=== PATIENT | female | born 1980 | race Caucasian/White ===

== ENCOUNTER 2016-04-19 00:34 | Observation (INO) | payer BC ==
[2016-04-19] MEDS ORDERED: MORPHINE SULFATE 5 MG/ML PFS IVP ONE (00:51)
[2016-04-19] MEDS ORDERED: ONDANSETRON HCL IV 4 MG/2 ML VIAL IVP ONE ×2 (00:51→15:42)
[2016-04-19 01:00] LABS: BASO % 0.3 % (0-6); GRAN % 62.9 % (47-80); HEMATOCRIT 42.1 % (35.0-47.0); HEMOGLOBIN 14.8 gm/dl (11.6-16.0); LYMPH % 30.6 % (16-45); MEAN CELL VOLUME 80.8 fl (81-97); MEAN CORPUSCULAR HEMOGLOBIN 28.4 pg (27-33); MEAN CORPUSCULAR HGB CONC 35.2 g/dl (32-36); MEAN PLATELET VOLUME 9.8 fl (7.4-10.4); MONO % 4.2 % (0-9); PLATELET COUNT 347 K/uL (130-400); RED BLOOD COUNT 5.21 M/uL (3.80-5.40); RED CELL DISTRIBUTION WIDTH 11.7 % (11.5-14.5); WHITE BLOOD COUNT W/O DIFF 11.6 K/uL (4.2-12.2)
[2016-04-19] MEDS ORDERED: 0.9 % SODIUM CHLORIDE 1000ML 1,000 ML IV SCH (01:00)
--- NOTE | 2016-04-19 01:00 | Emergency Department Record ---
History of Present Illness - General Chief Complaint: Abdominal Pain Stated Complaint: ABD PAIN Time Seen by Provider: 04/19/16 00:35 Source: Patient Mode of Arrival: Ambulatory Limitations: No limitations - History of Present Illness Initial Comments: 35 yo female presents to ED with a CC of progressively worsening abdominal pain that began 4-5 hours ago after eating fast food. Patient denies vomiting or fever, reports nausea symptoms. Patient reports that her pain is diffuse, but greatest in the RLQ. Patient denies previous surgeries. MD Complaint: Abdominal pain Onset/Timin -: Hour(s) Location: Diffuse, RLQ Severity: Moderate Quality: Sharp Consistency: Constant Improves With: Nothing Worsens With: Movement Associated Symptoms: Nausea - Related Data Home Medications Medication Instructions Recorded Confirmed Last Taken Gabapentin [Gabapentin] 300 mg PO DAILY 04/19/16 04/19/16 Unknown Hydroxyzine HCl [Atarax] 25 mg PO QID PRN 04/19/16 04/19/16 Unknown Metoclopramide HCl [Reglan] 5 mg PO BID PRN 04/19/16 04/19/16 Unknown Venlafaxine HCl [Venlafaxine HCl 300 mg PO DAILY 04/19/16 04/19/16 Unknown ER] Allergies Allergy/AdvReac Type Severity Reaction Status Date / Time Multiple food allergies Allergy HIVES Uncoded 07/04/15 22:34 Review of Systems Constitutional: Denies: Chills, Fever, Malaise, Night sweats Eyes: Denies: Eye discharge, Eye pain ENT: Denies: Congestion, Ear pain Respiratory: Denies: Cough, Dyspnea Cardiovascular: Denies: Chest pain, Dyspnea on exertion Endocrine: Denies: Fatigue, Heat or cold intolerance Gastrointestinal: Reports: Abdominal pain, Nausea. Denies: Constipation, Vomiting Genitourinary: Denies: Dysuria, Frequency Musculoskeletal: Denies: Arthralgia, Back pain, Gout, Joint swelling Skin: Denies: Bruising, Change in color Neurological: Denies: Abnormal gait, Confusion, Headache, Seizure Psychiatric: Denies: Anxiety Hematological/Lymphatic: Denies: Anemia, Blood Clots Past Medical History - SOCIAL HISTORY Smoking Status: Never smoker - RESPIRATORY Hx Respiratory Disorders: No - CARDIOVASCULAR Hx Cardio Disorders: No - NEURO Hx Neuro Disorders: Yes Hx Headaches: Yes (migraines) - GI Hx GI Disorders: No - Hx Genitourinary Disorders: No - ENDOCRINE Hx Endocrine Disorders: No - MUSCULOSKELETAL Hx Musculoskeletal Disorders: Yes Comment:: Autoimmune r/t connective tissue - PSYCH Hx Psych Problems: No - HEMATOLOGY/ONCOLOGY Hx Hematology/Oncology Disorders: No Physical Exam - General General Appearance: Alert, Oriented x3, Cooperative, Moderate distress (appears uncomfortable on examination) Limitations: No limitations - Head Head exam: Atraumatic, Normocephalic, Normal inspection Head exam detail: negative: Abrasion, Contusion, Reid's sign, General tenderness, Hematoma, Laceration - Eye Eye exam: Normal appearance. negative: Conjunctival injection, Periorbital swelling, Periorbital tenderness, Scleral icterus - ENT Ear exam: negative: Auricular hematoma, Auricular trauma Nasal Exam: negative: Active bleeding, Discharge, Dried blood, Foreign body Mouth exam: negative: Drooling, Laceration, Muffled voice, Tongue elevation - Neck Neck exam: Normal inspection. negative: Meningismus, Tenderness - Respiratory Respiratory exam: Normal lung sounds bilaterally. negative: Rales, Respiratory distress, Rhonchi, Stridor - Cardiovascular Cardiovascular Exam: Normal rhythm, Normal heart sounds, Tachycardia - GI/Abdominal GI/Abdominal exam: Soft, Tenderness, Other (Diffuse TTP, moderate to severe in nature, greastest RLQ, no rebound, guarding is present). negative: Rebound, Rigid - Rectal Rectal exam: Deferred - exam: Deferred - Extremities Extremities exam: Normal inspection. negative: Calf tenderness, Pedal edema, Tenderness - Back Back exam: Denies: CVA tenderness (R), CVA tenderness (L) - Neurological Neurological exam: Alert, Normal gait, Oriented X3 - Psychiatric Psychiatric exam: Normal affect, Normal mood - Skin Skin exam: Normal color. negative: Abrasion Type of lesion: negative: abrasion Course Vital Signs 04/19/16 00:45 Temperature 97.9 F Pulse Rate [ 109 H Pulse Ox Probe] Respiratory 18 Rate Blood Pressure 158/105 [Left Arm] Pulse Ox 96 - Reevaluation(s) Reevaluation #1: 04/19/16 01:23 Labs reviewed, Glucose 243, AST 72, ALT 116. HCG negative, labs are otherwise grossly unremarkable for an acute process. Reevaluation #2: 04/19/16 01:58 CT Abdomen and Pelvis: Small amount of stranding in the RLQ, appendix not well visualized. Patient updated on all results, reports that after Morphine 5 mg and Dilaudid 0.5 mg, pain is improved but still present. Physical examination is consistent with acute appendicitis, CT Abdomen and Pelvis demonstrates stranding in the region of the RLQ, appendix otherwise not well visualized. Case was discussed with Dr. Alejandro, will admit for probable appendicitis and possible operative removal later today. Medical Decision Making - Lab Data Result diagrams: 04/19/16 00:46 04/19/16 00:46 Disposition Disposition: Admit Clinical Impression: Abdominal pain Qualifiers: Abdominal location: right lower quadrant Qualified Code(s): R10.31 - Right lower quadrant pain Disposition: Still a Patient at [facility] Decision to Admit: Admit from ER Decision to Admit Date: 04/19/16 Decision to Admit Time: 02:02 Condition: (1) Good Time of Disposition: 02:02
[2016-04-19 01:03] LABS: URINE APPEARANCE CLEAR; URINE BILIRUBIN NEGATIVE (NEGATIVE); URINE BLOOD TRACE-I (NEGATIVE); URINE COLOR YELLOW; URINE KETONE 15 mg/dL (NEGATIVE); URINE LEUKOCYTE ESTERASE NEGATIVE (NEGATIVE); URINE NITRITE NEGATIVE (NEGATIVE); URINE UROBILINOGEN 0.2 E.U./dL (0.20 - 1.00)
[2016-04-19 01:06] LABS: HCG,QUALITATIVE URINE NEGATIVE (NEGATIVE); URINE BACTERIA NONE SEEN; URINE EPITHELIAL CELLS 0 - 2 (FEW); URINE RBC 0 - 2 (NONE SEEN); URINE WBC 0 - 2 (0-2/hpf)
[2016-04-19 01:09] LABS: ALB/GLOB RATIO 1.6 (1.1-1.8); ALBUMIN 4.5 gm/dL (3.5-5.0); ALKALINE PHOSPHATASE 107 U/L (38-126); ALT/SGPT 116 U/L (9-52); ANION GAP 15.4 (7-16); AST/SGOT 72 U/L (14-36); BILIRUBIN,TOTAL 0.53 mg/dL (0.2-1.3); BLOOD UREA NITROGEN 10 mg/dL (7-17); CARBON DIOXIDE 24.6 mmol/L (22-30); CREATININE 0.5 mg/dL (0.52-1.04); EST GLOMERULAR FILTRATION RATE > 60 ml/min; GLUCOSE,RANDOM 243 mg/dL (70-110); LIPASE 62 U/L (23-300); TOTAL PROTEIN 7.3 gm/dL (6.3-8.2)
[2016-04-19] MEDS ORDERED: HYDROMORPHONE HCL 1 MG/ML CPJ IVP ONE ×2 (01:36→16:39)
[2016-04-19] MEDS ORDERED: ONDANSETRON HCL IV 4 MG/2 ML VIAL IVP PRN (02:02)
[2016-04-19] MEDS ORDERED: 0.9 % SODIUM CHLORIDE 1000ML 1,000 ML IV PRN (02:02)
[2016-04-19] MEDS ORDERED: ERTAPENEM SODIUM 1 G in 0.9 % SODIUM CHLORIDE 100ML 100 ML IVPB ONE (02:03)
[2016-04-19] MEDS: HYDROMORPHONE HCL 1 MG/ML CPJ IVP PRN ×2 (03:25→07:53)
[2016-04-19] MEDS: DIPHENHYDRAMINE HCL IV 50 MG/ML VIAL IVP ONE ×2 (04:29→08:13)
[2016-04-19] MEDS ORDERED: HYDROMORPHONE HCL 2 MG/ML VIAL IV ONE (05:49)
[2016-04-19] MEDS ORDERED: BUPIVACAINE 0.25% W/EPI MPF 30ML VIAL IVP ONE (05:49)
[2016-04-19] MEDS ORDERED: RINGERS SOLUTION,LACTATED 1,000 ML IV PRN (07:56)
[2016-04-19] MEDS ORDERED: DIPHENHYDRAMINE HCL IV 50 MG/ML VIAL IVP ONE (08:08)
[2016-04-19] MEDS ORDERED: MECLIZINE 25 MG TABLET PO ONE (10:24)
[2016-04-19] MEDS ORDERED: FAMOTIDINE 20MG TABLET PO ONE (10:28)
[2016-04-19] MEDS ORDERED: METOCLOPRAMIDE 10 MG TABLET PO ONE (10:30)
[2016-04-19] MEDS ORDERED: ACETAMINOPHEN 1,000 MG in SODIUM CHLORIDE 1 BAG IVPB ONE (10:34)
[2016-04-19] MEDS ORDERED: HYDROCODONE/APAP 5/325MG TABLET PO PRN ×2 (13:32→13:33)
[2016-04-19] MEDS ORDERED: DIPHENHYDRAMINE HCL 25 MG CAPSULE PO PRN (13:45)
[2016-04-19] MEDS ORDERED: DIPHENHYDRAMINE HCL IV 50 MG/ML VIAL IVP PRN (13:47)
[2016-04-19] MEDS ORDERED: KETOROLAC 30 MG/ML VIAL IVP ONE (15:42)
[2016-04-19] MEDS ORDERED: PROPOFOL 10 MG/ML VIAL IV ONE (15:42)
[2016-04-19] MEDS ORDERED: ROCURONIUM BROMIDE 50MG/5ML VIAL IV ONE (15:42)
[2016-04-19] MEDS ORDERED: LIDOCAINE 2% MDV (20MG/ML) 20ML VIAL IV ONE (15:42)
[2016-04-19] MEDS ORDERED: FENTANYL PF 100MCG/2ML VIAL IV ONE (15:42)
[2016-04-19] MEDS ORDERED: SUCCINYLCHOLINE 20 MG/ML 10ML IVP ONE (15:42)
[2016-04-19] MEDS ORDERED: GLYCOPYRROLATE 0.2 MG/ML ML IV ONE (15:42)
[2016-04-19] MEDS ORDERED: NEOSTIGMINE 1 MG/1 ML,10ML VIAL IV ONE (15:42)
[2016-04-19] MEDS ORDERED: MIDAZOLAM HCL 2MG/2ML VIAL IV ONE (15:42)
--- NOTE | 2016-04-22 13:21 | Operative Note ---
DATE OF SURGERY: 04/19/2016 REFERRING: Aaron Caballero M.D. PREOPERATIVE DIAGNOSIS: Acute appendicitis. POSTOPERATIVE DIAGNOSIS: Acute appendicitis. OPERATION: Laparoscopic appendectomy. Surgeon: Waqar Alejandro D.O. Indication: The patient is a 35-year-old female who has had about an 18-hour history of abdominal pain. This did settle in her right lower quadrant and it was accompanied by some extreme nausea. Imaging studies as well as laboratory values were done. This did show a mildly elevated white blood cell count and a CT scan that did show findings consistent with acute appendicitis. We did discuss appendectomy, risks, benefits and alternatives. Risks include but not limited to bleeding, infection, abscess formation, possibility of an open operation and she understood this fully. Consent was signed and questions answered. PROCEDURE: She was taken to the operating room and placed in the supine position. General anesthesia was administered per Department of Anesthesia. The patient's abdomen was shaved of hair and prepped and draped in the usual sterile fashion. Infraumbilical region was anesthetized with a total of 2 mL of 0.25% Sensorcaine with epinephrine. A 2 cm infraumbilical incision made. This was carried down through copious amounts of subcutaneous tissue to the anterior rectus fascia. This was incised. Sweetie clamps were placed on the fascial edges and brought up into the wound. Stay sutures of 0 Vicryl were placed. The posterior rectus sheath was identified and incised and peritoneal cavity was entered bluntly. At this time a 10 mm blunt Shae port was placed and adequate pneumoperitoneum established. Under direct visualization an additional 5 mm right subcostal and a 5 mm suprapubic port were placed. The patient was rotated into Trendelenburg position, rotation to the left. The appendix was in the right mid abdomen. This was lifted anteriorly. The mesoappendix was taken down serially until the base of the appendix was noted. At this time an Endo VALERIE stapling device was used to transect the appendix off the base of cecum. This was placed in an EndoCatch bag and brought out infraumbilically. The right lower quadrant rechecked and noted to be hemostatic. No bleeding, no bile leak and no bile injury noted. Patient was leveled out and pneumoperitoneum was released. All ports removed. The fascia was closed with 0 Vicryl in a [id number] fashion. Skin in all ports closed with 4-0 Vicryl. She was taken to the Recovery Room in satisfactory condition. FINDINGS AT TIME OF SURGERY: Acute appendicitis. Waqar Alejandro DO CC: Aaron Caballero M.D., [address] [place] [id number] [facility]
--- NOTE | 2016-04-23 09:13 | CT SCAN REPORT ---
EXAM: CT SCAN OF THE ABDOMEN AND PELVIS HISTORY: PATIENT HAS LOWER ABDOMINAL PAIN AND NAUSEA. TECHNIQUE: Serial axial CT scan of the abdomen and pelvis was performed at 3.75 mm intervals from the dome of the diaphragm down to the pubic symphysis following the intravenous administration of 50 ml of Omnipaque 300. Comparison: CT scan of the abdomen and pelvis dated 03/28/12 is provided. FINDINGS: The lung windows of the lung bases demonstrate no CT evidence of a focal infiltrate or pleural effusion. The visualized heart size and contour is within normal limits. There is diffuse fatty infiltration identified throughout the liver. The size and contour of the liver is within normal limits. No suspicious focal hepatic lesions are identified. The visualized spleen, pancreas, adrenal glands, and gallbladder are unremarkable. There is no CT evidence of hydronephrosis or hydroureter. No renal or ureteral calculi are noted. The contour, caliber and flow within the abdominal aorta is within normal limits. There is no CT evidence of retroperitoneal, pelvic, or inguinal lymphadenopathy. The bowel gas pattern is nonobstructive. The appendix measures approximately 7.6 mm in diameter (normal being less than or equal to 6 mm). Mild periappendiceal fat stranding is identified. These findings suggest subtle, acute appendicitis. Clinical correlation is recommended. There is no CT evidence of free intraperitoneal fluid or free intraperitoneal air. There is no CT evidence of periappendiceal abscess. The anterior abdominal wall is unremarkable. The urinary bladder is decompressed. The uterus is unremarkable. Occasional follicles are identified within both ovaries. Bone windows demonstrate no CT evidence of a fracture or dislocation of the visualized osseous structures of the abdomen and pelvis. IMPRESSION: FINDINGS SUSPICIOUS FOR SUBTLE, ACUTE APPENDICITIS. CLINICAL CORRELATION IS RECOMMENDED. JOB NUMBER: [id number] [facility]
== END 2016-04-19 17:50 | disposition home or self-care (01) ==
LOC: ER 00:34 → MEDSURG 02:09
PROVIDERS: ADMIT Surgery; ATTEND Surgery
DX: K35.89 Other acute appendicitis (principal)
CPT/HCPCS: 99285 ×2; 96374; 96375; 96361; 83690; 85025; 80053; 36416; 81001; 82948; 81025; 74177; 44970; 00840; G0378; Q9967; J1335; J1885; J2405; J3010; J1170 ×2; J2270; J0330; J1200; J2710; J7030; J7120

== ENCOUNTER 2017-10-12 14:00 | Emergency (ER) | payer BC ==
--- NOTE | 2017-10-12 14:32 | Emergency Department Record ---
History of Present Illness - General Chief Complaint: Abdominal Pain Stated Complaint: ABDOMINAL PAIN,VOMITING,DIARRHEA Time Seen by Provider: 10/12/17 14:23 Mode of Arrival: Ambulatory - History of Present Illness Initial Comments: abdominal pain and nausea and she wake up at 5 am today with nausea and she took zofran and activated charcoal and she had 4 loose stools and she went to [facility] and the wait was to long so came here. MD Complaint: Abdominal pain Onset/Timin -: Days(s) Location: Diffuse Radiation: None Severity scale (1-10): 4 Quality: Cramping Consistency: Constant Improves With: Nothing Worsens With: Eating Associated Symptoms: Nausea - Related Data LMP (females 10-50): 1 month ago Home Medications Medication Instructions Recorded Confirmed Last Taken Alprazolam 0.25 mg PO QHS 10/12/17 10/12/17 Unknown Ondansetron [Zofran Odt] 4 mg PO Q8H PRN 10/12/17 10/12/17 Unknown Previous Rx's Medication Instructions Recorded Dicyclomine HCl [Bentyl] 10 mg PO Q8H #14 cap 10/12/17 Allergies Allergy/AdvReac Type Severity Reaction Status Date / Time metoclopramide [From Reglan] Allergy HIVES Verified 10/12/17 14:18 Multiple food allergies Allergy HIVES Uncoded 07/04/15 22:34 Travel Screening - Travel/Exposure Within Last 30 Days Have you traveled within the last 30 days?: No Review of Systems Reviewed: No additional complaints except as noted below Constitutional: Reports: As per HPI. Denies: Chills, Fever, Malaise, Night sweats, Weakness, Weight change Eyes: Reports: As per HPI. Denies: Eye discharge, Eye pain, Photophobia, Vision change ENT: Reports: As per HPI. Denies: Congestion, Dental pain, Ear pain, Epistaxis , Hearing loss, Throat pain Respiratory: Reports: As per HPI. Denies: Cough, Dyspnea, Hemoptysis, Stridor, Wheezes Cardiovascular: Reports: As per HPI. Denies: Arrhythmia, Chest pain, Dyspnea on exertion, Edema, Murmurs, Orthopnea, Palpitations, Paroxysmal nocturnal dyspnea, Rheumatic Fever, Syncope Endocrine: Reports: As per HPI. Denies: Fatigue, Heat or cold intolerance, Polydipsia, Polyuria Gastrointestinal: Reports: As per HPI. Denies: Abdominal pain, Constipation, Diarrhea, Hematemesis, Hematochezia, Melena, Nausea, Vomiting Genitourinary: Reports: As per HPI. Denies: Abnormal menses, Discharge, Dyspareunia, Dysuria, Frequency, Hematuria, Incontinence, Retention, Urgency Musculoskeletal: Reports: As per HPI. Denies: Arthralgia, Back pain, Gout, Joint swelling, Myalgia, Neck pain Skin: Reports: As per HPI. Denies: Bruising, Change in color, Change in hair/ nails, Lesions, Pruritus, Rash Neurological: Reports: As per HPI. Denies: Abnormal gait, Confusion, Headache, Numbness, Paresthesias, Seizure, Tingling, Tremors, Vertigo, Weakness Psychiatric: Reports: As per HPI. Denies: Anxiety, Auditory hallucinations, Depression, Homicidal thoughts, Suicidal thoughts, Visual hallucinations Hematological/Lymphatic: Reports: As per HPI. Denies: Anemia, Blood Clots, Easy bleeding, Easy bruising, Swollen glands Past Medical History - SOCIAL HISTORY Smoking Status: Never smoker Alcohol Use: None Drug Use: None - RESPIRATORY Hx Respiratory Disorders: Yes Hx Bronchitis: Yes (7 years ago developed into pneumonia) Hx Pneumonia: Yes (7 years ago) - CARDIOVASCULAR Hx Cardio Disorders: No Hx Edema: Yes (hands-seeing crew supervisor) - NEURO Hx Neuro Disorders: Yes Hx of Migraines: Yes (getting better. Has every 2 mos. Sees neurologist) - GI Hx GI Disorders: No Hx Abdominal Pain: Yes (began 3/5. Severe umbical area to pubis more to right side) Hx Nausea/Vomiting: Yes (X2 days) Comment:: Multiple food alleries-takes atarax and reglan prn - Hx Genitourinary Disorders: Yes Hx UTI: Yes (hx of freq UTI-none x a couple of years) - ENDOCRINE Hx Endocrine Disorders: No - MUSCULOSKELETAL Hx Musculoskeletal Disorders: Yes Hx Arthritis: Yes (left knee) Hx Fibromyalgia: (possible) - PSYCH Hx Psych Problems: No - HEMATOLOGY/ONCOLOGY Hx Hematology/Oncology Disorders: No Family Medical History Any Significant Family History?: Yes Hx Diabetes: Brother/Sister, Grandparents Hx HTN: Father Physical Exam - General General Appearance: Alert, Oriented x3, Cooperative, No acute distress - Head Head exam: Normal inspection - Eye Eye exam: Normal appearance, PERRL Pupils: Normal accommodation - ENT ENT exam: Normal exam, Mucous membranes moist, Normal external ear exam, Normal orophraynx, TM's normal bilaterally Ear exam: Normal external inspection. negative: External canal tenderness Nasal Exam: Normal inspection. negative: Discharge, Sinus tenderness Mouth exam: Normal external inspection, Tongue normal Teeth exam: Normal inspection. negative: Dental caries Throat exam: Normal inspection. negative: Tonsillar erythema, Tonsillar exudate - Neck Neck exam: Normal inspection, Full ROM. negative: Tenderness - Respiratory Respiratory exam: Normal lung sounds bilaterally. negative: Respiratory distress - Cardiovascular Cardiovascular Exam: Regular rate, Normal rhythm, Normal heart sounds - GI/Abdominal GI/Abdominal exam: Soft, Normal bowel sounds. negative: Tenderness - Rectal Rectal exam: Deferred - exam: Deferred - Extremities Extremities exam: Normal inspection, Full ROM, Normal capillary refill. negative: Tenderness - Back Back exam: Reports: Normal inspection, Full ROM. Denies: Muscle spasm, Rash noted, Tenderness - Neurological Neurological exam: Alert, Normal gait, Oriented X3, Reflexes normal - Psychiatric Psychiatric exam: Normal affect, Normal mood - Skin Skin exam: Dry, Intact, Normal color, Warm Course Vital Signs 10/12/17 14:10 Temperature 97.9 F Pulse Rate 85 Respiratory 20 Rate Blood Pressure 147/108 Pulse Ox 97 Medical Decision Making - Lab Data Result diagrams: 10/12/17 14:30 10/12/17 14:30 Disposition Clinical Impression: Hyperglycemia Abdominal pain Qualifiers: Abdominal location: lower abdomen, unspecified Qualified Code(s): R10.30 - Lower abdominal pain, unspecified Diarrhea Qualifiers: Diarrhea type: infectious Qualified Code(s): A09 - Infectious gastroenteritis and colitis, unspecified Disposition: Home, Self-Care Instructions: Gastroenteritis (ED) Additional Instructions: follow up with Dr Caballero and obtain a fasting blood sugar. clear liquids for 24 hours and slowly increase diet Prescriptions: Dicyclomine HCl [Bentyl] 10 mg PO Q8H #14 cap Forms: Patient Portal Access Time of Disposition: 15:34 Quality - Quality Measures Quality Measures: N/A - Blood Pressure Screening Does Patient Have Any of the Following: No Blood Pressure Classification: Hypertensive Reading Systolic Measurement: 147 Diastolic Measurement: 108 Screening for High Blood Pressure: < First Hypertensive BP, F/U Documented > [ [id number]] First Hypertensive Follow-up Interventions: Referral to alternative/primary care provider.
[2017-10-12 14:45] LABS: BASO % 0.4 % (0-6); EOS % 0.8 % (0-6); GRAN % 68.2 % (47-80); HEMATOCRIT 42.7 % (35.0-47.0); HEMOGLOBIN 15.1 gm/dl (11.6-16.0); LYMPH % 25.6 % (16-45); MEAN CELL VOLUME 82.4 fl (81-97); MEAN CORPUSCULAR HEMOGLOBIN 29.2 pg (27-33); MEAN CORPUSCULAR HGB CONC 35.4 g/dl (32-36); MEAN PLATELET VOLUME 9.4 fl (7.4-10.4); PLATELET COUNT 346 K/uL (130-400); RED BLOOD COUNT 5.18 M/uL (3.80-5.40); RED CELL DISTRIBUTION WIDTH 12.5 % (11.5-14.5); WHITE BLOOD COUNT W/O DIFF 7.6 K/uL (4.2-12.2)
[2017-10-12 14:55] LABS: BLOOD UREA NITROGEN 12 mg/dL (6-20); CREATININE 0.5 mg/dL (0.5-0.9); EST GLOMERULAR FILTRATION RATE > 60 mL/min
[2017-10-12 14:56] LABS: TOTAL PROTEIN 7.6 g/dL (6.6-8.7)
[2017-10-12 14:58] LABS: GLUCOSE,RANDOM 265 mg/dL (74-109)
[2017-10-12 15:00] LABS: ALT/SGPT 88 U/L (<33)
[2017-10-12 15:01] LABS: ALKALINE PHOSPHATASE 79 U/L (35-104); AST/SGOT 61 U/L (10.0-35.0); LIPASE 22 U/L (13-60)
[2017-10-12 15:02] LABS: BILIRUBIN,DIRECT < 0.2 mg/dL (0-0.3)
[2017-10-12] MEDS: 0.9 % SODIUM CHLORIDE 1,000 ML BAG IV ONE (15:02)
[2017-10-12] MEDS: ONDANSETRON HCL IV 4 MG/2 ML VIAL IV ONE (15:02)
[2017-10-12 15:14] LABS: URINE APPEARANCE CLOUDY; URINE BILIRUBIN NEGATIVE (NEGATIVE); URINE BLOOD TRACE-I (NEGATIVE); URINE COLOR YELLOW; URINE KETONE 40 mg/dL (NEGATIVE); URINE LEUKOCYTE ESTERASE NEGATIVE (NEGATIVE); URINE NITRITE NEGATIVE (NEGATIVE); URINE UROBILINOGEN 0.2 E.U./dL (0.20 - 1.00)
[2017-10-12 15:15] LABS: URINE GLUCOSE (UA) >=1000 mg/dL (NEGATIVE)
[2017-10-12 15:23] LABS: URINE BACTERIA NONE SEEN; URINE EPITHELIAL CELLS 0 - 2 (FEW); URINE RBC NONE SEEN (NONE SEEN); URINE WBC NONE SEEN (0-2/hpf)
== END 2017-10-12 15:55 | disposition home or self-care (01) ==
LOC: ER 14:00
DX: A09 Infectious gastroenteritis and colitis, unspecified (principal); R10.30 Lower abdominal pain, unspecified; R11.2 Nausea with vomiting, unspecified; R73.9 Hyperglycemia, unspecified
CPT/HCPCS: 80048; 80076; 81001; 81025; 83690; 85025; 96374; 99284; J2405; J7030